=== PATIENT | female | born 1995 | race Caucasian/White ===

== ENCOUNTER 2019-10-25 20:52 | Emergency (ER) | payer OTHER ==
[~2019-10-25] VITALS: Ht 152.4 cm; Wt 64.0 kg
[2019-10-25] MEDS ORDERED: PRENATABS RX T1 EACH PO (20:59)
== END 2019-10-26 05:16 | disposition home or self-care (01) ==
LOC: ER 20:52
DX: O20.0 Threatened abortion (principal)

== ENCOUNTER → 2019-12-11 | Outpatient (CLI) | payer OTHER ==
[~2019-12-11] MED LIST: PRENATABS RX T1 EACH PO
== END | disposition home or self-care (01) ==
LOC: PRENATAL 14:00
PROVIDERS: ATTEND Obstetrics & Gynecology Maternal & Fetal Medicine
DX: O26.852 Spotting complicating pregnancy, second trimester (principal); O36.80X1 Pregnancy with inconclusive fetal viability, fetus 1; Z36.89 Encounter for other specified antenatal screening; Z3A.14 14 weeks gestation of pregnancy

== ENCOUNTER 2019-12-16 15:48 | Inpatient (IN) | payer OTHER ==
[~2019-12-16] VITALS: Ht 152.4 cm; Wt 68.9 kg
== END 2019-12-20 08:58 | disposition home or self-care (01) | DRG 779 ==
LOC: ER 15:48 → OB/GYN 12-17 15:06
PROVIDERS: ADMIT Specialist; ATTEND Specialist
PROC: BY4CZZZ Ultrasonography of Second Trimester, Single Fetus (ICD-10-PCS; 2019-12-18)
PROC: 3E033VJ Introduction of Other Hormone into Peripheral Vein, Percutaneous Approach (ICD-10-PCS; 2019-12-19)
PROC: 10D17Z9 Manual Extraction of Products of Conception, Retained, Via Natural or Artificial Opening (ICD-10-PCS; principal; 2019-12-19 08:00)
DX: O03.4 Incomplete spontaneous abortion without complication (principal)